=== PATIENT | female | born 1970 | race Caucasian/White ===

== ENCOUNTER 2017-09-05 16:14 | Inpatient (IN) | payer OTHER ==
--- OUTSIDE RECORDS SUMMARY | 2017-09-05 17:15 | XMS REPORT ---
:1970 External Reference #:[id number] Author Organization [facility] Address [address] [place] [address] Phone [phone] Care Team Providers Name Role Phone Eda Woodall PA Care Team Information Audio Recording Engineer Unavailable Payers Type Date Identification Numbers Payment Provider Subscriber Commercial Effective: Policy Number: [employer] Ppo Harriet Abdi 2012 [id number] PayID: [id number] [address] [place] [address] Problems Description No Active Problems Family History Date Family Member(s) Problem(s) Comments Onset: Father None bd 1943 (08/15/2008) Onset: Mother Anemia unknown estonian back (08/15/2008) ground First Daughter Lori Born 2006 Number of Siblings Siblings: 1 Order Patient is the youngest of two children First Sister None Paternal Grandfather due to Colon () - at more Cancer than 70 Maternal Grandmother Pancreatic Cancer Maternal Grandmother Diabetes, Nos Social History Type Date Description Comments Education Post-Grad Marital Status Occupation Academic/Theatre Work Status Currently Working Advance Directive 08/15/2008 Living Will advised Abuse No history of abuse Cigarette Use Tobacco Of Any Kind Denies Use ETOH Use Rarely consumes alcohol Recreational Drug Use Denies Drug Use Daily Caffeine Does Not Consume Caffeine Enjoy Exercising Enjoys exercising Exercise Type/Frequency Exercises walking 45 min around neighborhood frequently Sun Exposure Uses sunscreen Seat Belt/Car Seat always uses seat belt Contraceptive Methods None Contraceptive Methods Current methods include condoms Age 1st Welling 20 Years Old STD's No STD History Additional Info Sexual preference is men Additional Info Sexual Partners 1 Allergies, Adverse Reactions, Alerts Date Description Reaction Status Severity Comments 06/29/2008 NKDA active Medications Medication Date Status Form Strength Qnty SIG Indications Ordering Provider Phenazopyridine 03/08 Active Tablets 100mg 30tab 1-2 tabs up 788.1 Silcoff, HCL s to tid, prn Don, Use only M.D. when sxs particularl y annoying Multi-Vitamin 06/29 Active Tablets 100ta 1 PO qd franki Card M.D. Tamiflu 08/13 Hx Capsules 75mg 10cap take 1 Sopchak s capsule by Slade, - mouth daily D.O. 08/23 for 10 days for treatment to prevent influenza Ciprofloxacin 03/01 Hx Tablets 250mg 14tab 1 tab po 788.1 Silcoff, HCL s bid x 7 Virginia Ochoa M.D. 03/08 Amoxicillin/Pota 01/05 Hx Tablets 875-125mg 20tab 1 tab po 461.2 Silcoff, ssium s bid x 10 Don Clavulanate - days M.DMarine 01/16 Fluconazole 01/05 Hx Tablets 150mg 1tabs 1 tab po 1 461.2 Silcoff, time Virginia Ochoa M.D. 01/06 Sulfacetamide 06/21 Hx Suspension 10% 1bott 1-2 drops 372.00 Silco, le every 3 Don, - hours while M.D. 07/01 awake for up to 5 days to affected eye(s), or until symptom free for 24hrs Lo Loestrin Fe 06/09 Hx Tablets 1mg-10 as directed Unknown mcg / 10 - mcg 09/04 Fluconazole 05/28 Hx Tablets 150mg 1tabs 1 now 486 Pratik Card, 06/02 M.DMarine Phenergen With 05/21 Hx 120cc 2 tsp q 4h 786.2 Freddy Codeine Cough prn cough Pratik Syrup Virginia Card, 06/10 M.D. Clarithromycin 05/12 Hx Tablets 500mg 20tab 1 po bid 486 s Pratik Card, 05/22 M.D. Calcium 600+D 01/19 Hx Tablets 600-400mg 2 a day V70.0 -Unit Pratik Card, 09/04 M.D. Clarithromycin 11/27 Hx Tablets 250mg 20tab 1 po bid 462 s Pratik - Kyaw, 12/07 M.D. Amoxicillin 10/15 Hx Tablets 875mg 20tab 1 tab bid x 381.00 Silcoff /2009 s 10 day Virginia OchoaDMarine 11/27 Codeine 10/15 Hx 45uni 1 tab 1-2 381.00 Silcoff, W/Tylenol ts tabs q4-6 Don, - hrs prn M.D. 11/27 Amoxicillin 06/29 Hx 250mg 45uni 1 tid until 461.0 ts gone Pratik - Kyaw, 07/13 M.D. Nystatin 06/29 Hx Tablets [id number] 14tab Vaginal 461.0 t s Tablet Use A. - One qd Kyaw, 07/13 M.D. Veramyst Hx Suspension 27.5mcg/S 2 sprays to Unknown /0000 pray both - nostrils 03/01 once daily. Medications Administered in Office Medication Date Status Form Strength Qnty SIG Indications Ordering Provider SC/Im Administered Injection Freddy Isaac 010 Josh Card Immunizations CPT Code Status Date Vaccine Lot # [id number] Given 06/04/2016 Influenza Virus Vaccine, Quadrivalent, Split, [id number] Preservative Free [id number] Given 05/19/2015 Influenza Virus Vaccine, Split, Preserv Free, [id number] Intradermal Use 56737 Given 06/07/2014 Flu, Split Virus 3Yrs [id number] 39804 Given 05/31/2012 Flu, Split Virus 3Yrs [id number] 79998 Given 04/21/2011 Flu, Split Virus 3Yrs [id number] 94515 Given 07/28/2010 Flu, Split Virus 3Yrs [id number] 73232 Given 08/15/2008 Adacel or Boostrix, TDaP [id number] 74269 Given 08/15/2008 Flu, Split Virus 3Yrs [id number] Vital Signs Date Vital Result Comment 09/05/2017 BP Systolic 112 mmHg BP Diastolic 56 mmHg Heart Rate 76 /min Body Temperature 98.0 F Height 66 inches 5'6" Weight 118.00 lb BMI (Body Mass Index) 19.0 kg/m2 03/08/2012 BP Systolic 102 mmHg BP Diastolic 61 mmHg Heart Rate 73 /min Body Temperature 98.1 F 03/01/2012 BP Systolic 85 mmHg BP Diastolic 55 mmHg Heart Rate 93 /min Body Temperature 98.7 F Height 65 inches 5'5" Weight 158.00 lb BMI (Body Mass Index) 26.3 kg/m2 01/06/2012 BP Systolic 119 mmHg BP Diastolic 68 mmHg Heart Rate 95 /min Body Temperature 98.1 F Weight 158.00 lb 06/21/2011 BP Systolic 104 mmHg BP Diastolic 58 mmHg Body Temperature 98.6 F Height 65 inches 5'5" Weight 154.00 lb BMI (Body Mass Index) 25.6 kg/m2 10/16/2010 BP Systolic 112 mmHg BP Diastolic 60 mmHg Heart Rate 80 /min Respiratory Rate 16 /min Body Temperature 98.2 F Weight 145.00 lb 06/30/2010 BP Systolic 95 mmHg BP Diastolic 48 mmHg Height 65 inches 5'5" Weight 140.00 lb BMI (Body Mass Index) 23.3 kg/m2 05/28/2010 BP Systolic 94 mmHg BP Diastolic 58 mmHg Weight 140.00 lb 05/21/2010 BP Systolic 104 mmHg BP Diastolic 50 mmHg Height 65.25 inches 5'5.25" Weight 138.00 lb BMI (Body Mass Index) 22.8 kg/m2 05/15/2010 BP Systolic 84 mmHg BP Diastolic 58 mmHg Heart Rate 70 /min Respiratory Rate 17 /min Body Temperature 98.6 F Weight 140.00 lb Last Menstrual Period 0 05/12/2010 BP Systolic 110 mmHg BP Diastolic 60 mmHg Heart Rate 90 /min Respiratory Rate 18 /min O2 % BldC Oximetry 97 % w exercise an la rest Body Temperature 100.4 F Weight 140.00 lb Last Menstrual Period [id number] nl 01/19/2010 BP Systolic 98 mmHg BP Diastolic 60 mmHg Weight 138.00 lb 11/27/2009 BP Systolic 88 mmHg BP Diastolic 50 mmHg Body Temperature 99.1 F Weight 138.00 lb 10/15/2009 BP Systolic 135 mmHg BP Diastolic 63 mmHg Heart Rate 76 /min Body Temperature 98.3 F Weight 134.00 lb Last Menstrual Period 0 08/15/2008 BP Systolic 100 mmHg BP Diastolic 60 mmHg Height 65 inches 5'5" Weight 150.00 lb BMI (Body Mass Index) 25.0 kg/m2 06/29/2008 BP Systolic 94 mmHg BP Diastolic 66 mmHg Body Temperature 98.6 F Weight 154.00 lb Last Menstrual Period 0 Results Test Date Test Result H/L Range Note Ua Inhouse 09/05/2017 Ua Glucose - 1 Ua Bilirubin - 1 Ua Ketones tr 1 Ua Specific Troy 1.005 1 Ua Blood - 1 Ua PH 7.0 1 Ua Protein - 1 Ua Urobilinogen - 1 Ua Nitrite - 1 Ua Leukocytes - 1 Laboratory test 07/23/2016 Urine Culture And SEE RESULT BELOW 2, 3 finding Sensitivities Urinalysis 04/05/2013 Urine Color Yellow Urine Appearance Cloudy Urine Specific Troy 1.005 Low 1.010-1.030 Urine Esterase 2+ Negative Urine Nitrate Negative Negative Urine Urobilinogen Negative E.U./dL Negative Urine Protein 1+ mg/dL Negative Urine pH 6.0 5-9 Urine Blood 3+ Negative Urine Ketones Negative mg/dL Negative Urine Bilirubin Negative Negative Urine Glucose Negative mg/dL Negative Urine Microscopic 04/05/2013 Urine WBC 2+ (>10-30 /hpf) None Seen 4 Urine RBC 3+ (>10 /hpf) None Seen Urine Mucus Present /lpf Absent Urine Epithelial Cells 1+ Squamous /hpf None Seen Bacteria Urine None Seen None Seen Urine Culture And Sensitivities 04/05/2013 Urine Culture (SEE NOTE) 5 Urine Culture & Sensitivi 03/13/2012 M 6 <SEE NOTE> Ua Inhouse 03/08/2012 Ua Glucose - Ua Bilirubin - Ua Ketones - Ua Specific Troy 1.005 Ua Blood nh mod Ua PH 5.0 Ua Protein - Ua Urobilinogen - Ua Nitrite - Ua Leukocytes - Culture Urine Inhouse 03/08/2012 Colonies neg Culture Urine Inhouse 03/01/2012 Colonies [id number] Ua Inhouse 03/01/2012 Ua Glucose - Ua Bilirubin - Ua Ketones - Ua Specific Troy 1.005 Ua Blood nh mod Ua PH 5.0 Ua Protein - Ua Urobilinogen - Ua Nitrite - Ua Leukocytes - Urine Culture & 01/06/2012 M <SEE NOTE> 7 Sensitivi Urine Micro Inhouse 01/06/2012 Ua WBC ntnc Ua RBC tntc Ua Casts - Ua Epi - Ua Other - Ua Glucose - Ua Bilirubin - Ua Ketones - Ua Specific Troy 1.005 Ua Blood lg Ua PH 5.0 Ua Protein - Ua Urobilinogen - Ua Nitrite - Ua Leukocytes lrg Urine Culture & 08/24/2011 M <SEE 8 Sensitivi NOTE> Laboratory test finding 10/16/2010 Culture Throat neg Culture Throat Rapid Screen neg Xray 06/30/2010 X-Ray, Chest, 2 wnl Views Xray 05/21/2010 X-Ray, Chest, 2 improved RLL Views Laboratory test 05/12/2010 Bordetella Pertussis This test was de 9, 10 finding <SEE NOTE> Xray 05/12/2010 X-Ray, Chest, 2 rll pn Views Laboratory test 01/19/2010 Vitamin B12 565 pg/mL 180-914 finding Folic Acid > 20.0 NG/ML High 2-16 CBC With Electronic Diff 01/19/2010 White Blood Count 5.4 CUMM 4.8-10.8 Red Cell Count 3.62 CUMM Low 4.2-5.4 Hemoglobin 11.9 g/dL Low 12.0-16.0 Hematocrit 34 % Low 35-47 Mean Corpuscular Volume 95 um3 79-97 Mean Corpuscular Hemoglob 33 pg High 27-31 Mean Corpuscular HGB Cone 35 g/dL 32-36 Redcell Distribution WDTH 13 % 10.5-15 Platelet Count 231 CUMM 150-450 Mean Platelet Volume 6.8 um3 Low 7.4-10.4 Gran % 68.6 % 38-83 Lymph % 21.7 % Low 25-47 Mononuclear % 7.7 % 1-9 Eosinophil % 1.2 % 0-6 Basophil % 0.8 % 0-2 Abs Lymphs 1.2 1.0-4.8 Abs Mononuclear 0.4 0-0.8 Absolute Neutrophil Count 3.7 1.5-7.7 Abs Eosinophils 0.1 0-0.6 Abs Basophils 0 0-0.2 Liver Function Panel 01/19/2010 Total Protein 6.1 GM/DL Low 6.2-8.1 Albumin 3.6 GM/DL 3.6-5.4 Globulin 2.5 GM/DL 2-4 Albumin/Globulin Ratio 1.4 1-3 Bilirubin Total 0.9 mg/dL 0.4-1.5 11 Bilirubin Direct 0.2 mg/dL 0.1-0.5 Indirect Bilirubin 0.7 mg/dL 0.1-0.75 Alkaline Phosphatase 61 U/L 30-110 Alt (SGPT) 15 U/L 14-54 Ast (Sgot) 18 U/L 12-42 Basic Metabolic Panel 01/19/2010 Sodium 138 mmol/L 135-145 Potassium 3.6 mmol/L 3.5-5.0 Chloride 103 mmol/L 101-111 Co2 (Carbon Dioxide) 30.0 mmol/L 22-32 Anion Gap 5.0 mmol/L 2-11 12 Glucose 68 mg/dL Low 70-100 13 BUN 9 mg/dL 6-24 Creatinine 0.80 mg/dL 0.50-1.40 One Over Creatinine 1.20 BUN/Creatinine Ratio 11.3 8-20 Calcium 9.2 mg/dL 8.1-9.9 14 eGFR Non- 84.4 > 60 eGFR 102.2 > 60 15 Laboratory test finding 11/27/2009 Culture Throat neg Culture Throat Rapid Screen neg CBC With Electronic Diff 09/04/2008 White Blood Count 7.0 CUMM 4.8-10.8 Red Cell Count 3.87 CUMM Low 4.2-5.4 Hemoglobin 12.5 g/dL 12.0-16.0 Hematocrit 36 % 35-47 Mean Corpuscular Volume 93 um3 79-97 Mean Corpuscular Hemoglob 32 pg High 27-31 Mean Corpuscular HGB Cone 35 g/dL 32-36 Redcell Distribution WDTH 13 % 10.5-15 Platelet Count 259 CUMM 150-450 Mean Platelet Volume 6.8 um3 Low 7.4-10.4 Gran % 67.8 % 38-83 Lymph % 22.7 % Low 25-47 Mononuclear % 8.4 % 1-9 Eosinophil % 0.8 % 0-6 Basophil % 0.3 % 0-2 Abs Lymphs 1.6 1.0-4.8 Abs Mononuclear 0.6 0-0.8 Absolute Neutrophil Count 4.8 1.5-7.7 Abs Eosinophils 0.1 0-0.6 Abs Basophils 0 0-0.2 Lipid Profile (Trig/Chol/HDL) 09/04/2008 Triglyceride 58 mg/dL 40-200 Cholesterol 150 mg/dL Less Than 200 16 High Density Lipoprotein 61 mg/dL High 40-60 17 Cholesterol/HDL Ratio 2.46 AVERAGE 1-4.44 Low Density Lipoprotein 77 mg/dL Less Than 100 18 1 void, clear, yellow 2 [id number] 3 SEE RESULT BELOW Name: HARRIET ABDI : [address]: Shanita Gamble Acct: [id number] Unit: [id number] AGE: 45 Location: [facility] Re07/23/16 SEX: F Status: DEP ER SPEC: [id number] STEPHENIE: 07/23/16-[address] [facility] [address]: Mansoor ACEVES REQ: [id number] RECD: 07/23/16-1634 STATUS: LYNNETTE ESCALANTE DR: Shanita Marcano MD _ SOURCE: URINE SPDESC: ORDERED: Urine Culture COMMENTS: [id number] Procedure Result Reported Site Urine Culture Final 07/25/16- 1225 ML Mixed manolo; possible contamination. Suggest resubmission. * ML - MAIN LAB (PSC1) . END OF REPORT * ML=Testing performed at Main Lab DEPARTMENT OF PATHOLOGY, [facility] [employer] [place], [place] [address] Ben Veloz M.D. Director [facility] # [id number] 4 2+ (>10-30 /hpf) 5 RUN DATE: 04/07/13 [facility] LAB LIVE PAGE 1 RUN TIME: 957 [facility] [place], [place] [address] Specimen Inquiry Name: HARRIET ABDI : [address]: Renzo Begum MD Acct: [id number] Unit: [id number] AGE: 42 Location: [facility] Re04/05/13 SEX: F Status: DEP ER SPEC: [id number] STEPHENIE: 04/05/[address] [facility] [address]: Renzo Begum MD REQ: [id number] RECD: 04/05/13 STATUS: LYNNETTE ESCALANTE DR: MARY Card MD _ SOURCE: URINE SPDESC: ORDERED: Urine Culture Procedure Result Verified Site Urine Culture Final 04/07/13- 957 ML Organism 1 NORMAL MANOLO [place] Count 1-10,000 (Few) CFU/ML END OF REPORT * ML=Testing performed at Main Lab DEPARTMENT OF PATHOLOGY, [address] [place] [address] Ben Veloz M.D. Director [facility] Permit #[id number] RUN DATE: 03/15/12 [facility] NMI LIVE PAGE 1 RUN TIME: 904 Specimen Inquiry RUN USER: INTERFACE Name: TRINIDADHARRIET E Status: REG REF Re03/13/12 Age/Sex: 41/F Unit#: [id number] Location: [facility] : [birth year] SPEC #: [id number] STEPHENIE: 03/13/12-1130 STATUS: COMP REQ #: [id number] RECD: 03/13/12-[address]: [place] PA,Shavon S. SOURCE: URINE ENTR: 03/13/12-[address]: PRERNA: ORDERED: URINE C S QUERIES: MEDENT REQUISITION # [id number] SPECIMEN DESCRIPTION: URINE, CLEAN CATCH ACT WKST: UR 03/15/12 #1 Procedure Result Verified Site > URINE CULTURE SENSITIVI Final -09 ML FINAL: NO GROWTH DAY 2 (<1,000 CFU/mL) ML - [facility] State Permit #[id number] [address] [place] [address] DEPARTMENT OF PATHOLOGY, [address], [place], [place] [address] [facility] Permit #[id number] Ben Veloz M.D. Director Kenya Bradford M.D. [facility] 7 RUN DATE: 01/08/12 [facility] NMI LIVE PAGE 1 RUN TIME: 945 Specimen Inquiry RUN USER: INTERFACE Name: HARRIET ABDI Accmila#: [id number] Status: REG REF Re01/06/12 Age/Sex: 41/F Unit#: [id number] Location: [facility] : 68 SPEC #: [id number] STEPHENIE: 01/06/12 STATUS: LYNNETTE REQ #: [id number] RECD: 01/06/[address] [facility] [address]: Shavon Nxi SOURCE: URINE ENTR: 01/06/[address] [facility] [address]: [facility]: ORDERED: URINE C S QUERIES: [facility] REQUIS[facility] # [id number] SPECIMEN DESCRIPTION: URINE, CLEAN CATCH Procedure Result Verified Site > URINE CULTURE SENSITIVI Final -0946 ML Organism 1 ESCHERICHIA COLI COLONY COUNT 75-100,000 ORGANISMS/ML (MANY) 1. ESCHERICHIA COLI RX M.I.C. ------ --------- AMIKACIN S <=2 LEVOFLOXACIN S <=0.12 AMPICILLIN S <=2 CEFAZOLIN S <=4 CEFTRIAXONE S <=1 CIPROFLOXACIN S <=0.25 GENTAMICIN S <=1 TIGECYCLINE S <=0.5 CEFTAZIDIME S <=1 IMIPENEM S <=1 NITROFURANTOIN S 32 TRIMETH-SULFA S <=20 *These antibiotics are not available in the [facility] Formulary. Contact the Microbiology Department for any additional antibiotic reporting. [facility] Permit #[id number] [address] [place] [address] DEPARTMENT OF PATHOLOGY, [address] [place] [address] [facility] Permit #[id number] Josh Lynch M.D. Heel Shaver 8 RUN DATE: 08/26/11 [facility] NMI LIVE PAGE 1 RUN TIME: 3462 Specimen Inquiry RUN USER: INTERFACE Name: HARRIET ABDI Status: DEP CLI Re08/24/11 Age/Sex: 40/F Unit#: [id number] Location: [facility] : 68 SPEC #: [id number] STEPHENIE: 08/24/11 STATUS: COMP REQ #: [id number] RECD: 08/24/[address]: Soren Mcneil MD SOURCE: URINE ENTR: 08/24/[address]: Kyaw MORTON, Freddy Christie SPDESC: ORDERED: URINE C S QUERIES: SPECIMEN DESCRIPTION: URINE, CLEAN CATCH Procedure Result Verified Site > URINE CULTURE SENSITIVI Final -0959 ML Organism 1 ESCHERICHIA COLI COLONY COUNT >100,000 ORGANISMS/ML (MANY) 1. ESCHERICHIA COLI RX M.I.C. ------ --------- AMIKACIN S <=2 LEVOFLOXACIN S <=0.12 AMPICILLIN S <=2 CEFAZOLIN S <=4 CEFTRIAXONE S <=1 CIPROFLOXACIN S <=0.25 GENTAMICIN S <=1 TIGECYCLINE S <=0.5 CEFTAZIDIME S <=1 IMIPENEM S <=1 NITROFURANTOIN S <=16 TRIMETH-SULFA S <=20 *These antibiotics are not available in the [facility] Formulary. Contact the Microbiology Department for any additional antibiotic reporting. - [facility] Permit #[id number] [address] [place] [address] DEPARTMENT OF PATHOLOGY, [address] [place] [address] [place] Permit #[id number] Ben Veloz M.D. Director Kenya Bradford M.D. Heel Shaver 9 neg 10 This test was developed and its performance characteristics determined by Laboratory Medicine and Pathology, [facility]. This test has not been cleared or approved by the U.S. Food and Drug Administration. Test performed by: [facility] [employer] [address] [address] Negative for Bordetella pertussis/parapertussis DNA 11 A metabolite of Naproxen, O-desmethylnaproxen, has been shown to interfere with the Jendrassik-Eighty Four method for measuring total bilirubin. Samples from patients who have taken Naproxen have shown spurious elevation in total bilirubin levels. 12 Anion gap measurement may be of limited value in the presence of any alkalosis, especially in a combined acid base disorder. . 13 Note change in reference range as of 03/21/08. The change was based on recommendations from the [place] [employer]. 14 Please note change in reference range effective 08 . 15 Because ethnic data is not always readily available, this report includes an eGFR for both -Americans and non- Americans. The National Kidney Disease Education Program (NKDEP) does not endorse the use of the MDRD equation for patients that are not between the ages of 18 and 70, are , have extremes of body size, muscle mass, or nutritional status, or are non- or non-. According to the National Kidney Foundation, irrespective of diagnosis, the stage of the disease is based on the level of kidney function: Stage Description GFR(mL/min/1.73 m(2)) 1 Kidney damage with normal or decreased GFR 90 2 Kidney damage with mild decrease in GFR 60-89 3 Moderate decrease in GFR 30-59 4 Severe decrease in GFR 15-29 5 Kidney failure <15 (or dialysis) 16 CHOLESTEROL INTERPRETATION: Desirable: Less than 200 MG/DL Borderline-High Risk: 200-239 MG/DL High-Risk: 240 MG/DL and over 17 HDL INTERPRETATION: Undesirable: High Risk: Less than 40 MG/DL Desirable: Low Risk: Greater than 60 MG/DL 18 LDL INTERPRETATION: Low Risk Optimal Level: LDL Less than 100 MG/DL Near or Above Optimal: LDL 100-129 MG/DL Borderline High Risk: LDL 130-159 MG/DL High Risk: LDL 160-189 MG/DL Very High Risk: LDL Greater than 189 MG/DL Procedures Date CPT Code Description Status 06/30/2010 08710 X-Ray Chest Two Views Completed 05/21/2010 69259 X-Ray Chest Two Views Completed 05/12/2010 30609 SC/Im Injections Completed 05/12/2010 58193 Oximetry, Multiple Determinations (Eg, During Exercise) Completed 05/12/2010 19541 X-Ray Chest Two Views Completed 01/19/2010 57083 Anoscopy Diagnostic Completed 08/15/2008 75190 Tympanometry Completed 08/15/2008 88805 Pure Tone, Threshold Completed 08/15/2008 96342 Remove Impact Cerumen Requiring Instrument, Unilateral Completed 07/29/2006 0 Payment Completed Encounters Type Date Location Provider CPT E/M Dx Office Visit 09/05/2017 11:40a Main Office Mary Kent 88408 R10.9 R19.7 Office Visit 03/08/2012 11:20a Main Office Mary Kent 85111 788.1 789.00 Office Visit 03/01/2012 4:20p Main Office Mary Kent 50025 788.1 599.70 Office Visit 01/06/2012 10:20a Main Office Mary Kent 36876 788.1 461.2 388.70 Office Visit 06/21/2011 3:00p Main Office Don Vital M.D. 45736 372.00 Office Visit 10/16/2010 10:25a Main Office Freddy Card M.D. 77491 462 466.0 Office Visit 06/30/2010 3:30p Main Office Freddy Card M.D. 55928 486 Office Visit 05/28/2010 4:00p Main Office Freddy Card M.D. 08099 486 616.10 Office Visit 05/21/2010 3:15p Main Office Freddy Card M.D. 58442 486 786.2 Office Visit 05/15/2010 4:30p Main Office Freddy Card M.D. 90052 486 Office Visit 05/12/2010 3:45p Main Office Freddy Card M.D. 50472 786.2 486 786.07 Office Visit 01/19/2010 9:15a Main Office Freddy Card M.D. 19619 216.8 569.42 787.02 367.4 388.71 V70.0 Office Visit 11/27/2009 3:00p Main Office Freddy Card M.D. 28182 462 Office Visit 10/15/2009 11:20a Main Office Mary Kent 91822 381.00 388.71 Office Visit 08/15/2008 2:00p Main Office Freddy Card M.D. 16559 380.4 389.00 V77.91 V70.0 381.81 V04.81 V06.1 V07.2 Office Visit 06/29/2008 10:00a Main Office Freddy Card M.D. 95744 461.0 Plan of Care 09/05/2017 - Shavon Leone PMarineA.R10.9 Unspecified abdominal painNew Xrays:CT Abdomen and Pelvis w/ ContrastComments:UA [id number] Diarrhea, unspecifiedNew Xrays:CT Abdomen and Pelvis w/ ContrastComments:occult blood, small amt seen on YOLANDA. Referred to ED: note sent.Follow up:CT call and hold: we will contact you while you are at the facility Addendum: Verbal report from imaging indicated severe colitis. Patient does have rectal bleeding and more than 6 episodes of diarrhea today. This is first episode of this disorder for this pt. Reocmmended that she go to ER for further treatment. CT report and labs already conducted. (Labs were done this afternoon at [facility] Pt electing to go to [facility] as she lives near there.
[2017-09-05] MEDS ORDERED: NS 0.9% 1000 ML* 2,000 ML IV ONE (17:34)
[2017-09-05 17:53] LABS: ABS Basophils 0 10^3/ul (0-0.2); ABS Eosinophils 0 10^3/ul (0-0.6); ABS Lymphocytes 1.3 10^3/ul (1.0-4.8); ABS Monocytes 0.7 10^3/ul (0-0.8); ABS Neutrophils 8.4 10^3/ul (1.5-7.7); ABS Nucleated RBC 0 10^3/ul; Eosinophil % 0.1 % (0-6); Hematocrit 40 % (35-47); Hemoglobin 13.8 g/dl (12.0-16.0); Lymphocyte % 12.1 % (25-47); Mean Corpuscular HGB Conc 35 g/dl (31-36); Mean Corpuscular Hemoglobin 33 pg (27-31); Mean Corpuscular Volume 95 fL (80-97); Mean Platelet Volume 7 um3 (7.4-10.4); Nucleated Red Blood Cells % 0; Platelet Count 283 10^3/ul (150-450); Red Cell Distribution Width 13 % (10.5-15); White Blood Count 10.5 10^3/ul (3.5-10.8)
[2017-09-05 18:11] LABS: EGFR Non-African American 74.7 (>60)
[2017-09-05 18:17] LABS: Urine Appearance Clear; Urine Blood Negative (Negative); Urine Color Straw; Urine Ketones Negative (Negative); Urine Protein Negative (Negative); Urine Specific Gravity 1.023 (1.010-1.030); Urine Urobilinogen Negative (Negative)
[2017-09-05] MEDS ORDERED: Morphine INJ* 4 MG/ML 1 ML CARPUJECT IV ONE (18:24)
[2017-09-05] MEDS ORDERED: Ondansetron INJ* 2 MG/ML VIAL IV ONE (18:24)
--- NOTE | 2017-09-05 18:30 | ED ---
GI/ HPI - HPI Summary HPI Summary: 46-year-old female presents with diarrhea since Tuesday morning. She states that she has been having intermittent abdominal cramping greatest in LLQ. She admits occasional nausea and vomiting. She states she has been having blood in her stool. She states that yesterday the blood was much worse than today. She states she feels very weak. She states that when the cramping occurs it radiates also into her back. She denies any dysuria hematuria or flank pain. She denies any fever. She denies any previous abdominal surgeries or history of diverticulitis or colitis. She's never had this before. She denies any chest pain or shortness of breath. She denies anyone else being sick or eating anything different. She is not on blood thinners. She has taken Tylenol for pain relief. She describes her pain as contraction-like. She was seen at her primary who ordered a CT which the CT shows colitis. She ate only crackers today. She has no medical conditions. - History of Current Complaint Chief Complaint: EDAbdPain Time Seen by Provider: 09/05/17 17:37 Stated Complaint: CRAMPING/BLOOD IN STOOL/DIARRHEA Hx Last Menstrual Period: 07/02/16 Pain Intensity: 7 - Allergy/Home Medications Allergies/Adverse Reactions: Allergies Allergy/AdvReac Type Severity Reaction Status Date / Time No Known Allergies Allergy Verified 04/05/13 08:36 Home Medications: Home Medications Ibuprofen TAB* [Advil TAB*] 200 mg PO DAILY PRN 09/05/17 [History Confirmed 12/16] Multivitamins/Minerals TAB* [Thera M Plus TAB*] 1 tab PO EVERY OTHER DAY [History Confirmed 09/05/17] PMH/Surg Hx/FS Hx/Imm Hx Endocrine/Hematology History: Denies: Hx Diabetes, Hx Thyroid Disease Cardiovascular History: Denies: Hx Hypertension Respiratory History: Denies: Hx Asthma, Hx Chronic Obstructive Pulmonary Disease (COPD) GI History: Denies: Hx Ulcer History: Denies: Hx Dialysis, Hx Renal Disease - Cancer History Hx Chemotherapy: No Hx Radiation Therapy: No - Surgical History Surgery Procedure, Year, and Place: EAR Infectious Disease History: No Infectious Disease History: Denies: Hx Clostridium Difficile, Hx Hepatitis, Hx Human Immunodeficiency Virus (HIV), Hx of Known/Suspected MRSA, Traveled Outside the [place] in Last 30 Days - Family History Known Family History: Positive: Respiratory Disease - COUSIN KIDNEY STONE - Social History Alcohol Use: Rare Alcohol Amount: WINE W/ DINNER Substance Use Type: Reports: None Smoking Status (MU): Never Smoked Tobacco Review of Systems Negative: Fever Negative: Chest Pain Negative: Shortness Of Breath Positive: Abdominal Pain, Vomiting, Diarrhea, Nausea All Other Systems Reviewed And Are Negative: Yes Physical Exam Triage Information Reviewed: Yes Vital Signs On Initial Exam: Initial Vitals Temp Pulse Resp BP Pulse Ox 99.6 F 86 18 123/62 100 09/05/17 16:24 09/05/17 16:24 09/05/17 16:24 09/05/17 16:24 09/05/17 16:24 Vital Signs Reviewed: Yes Appearance: Positive: Pain Distress Skin: Positive: Warm, Dry Head/Face: Positive: Normal Head/Face Inspection Eyes: Positive: Normal, EOMI, [place], Conjunctiva Clear ENT: Positive: Normal ENT inspection, Pharynx normal, TMs normal Respiratory/Lung Sounds: Positive: Clear to Auscultation, Breath Sounds Present Cardiovascular: Positive: Normal, RRR Abdomen Description: Positive: Soft, Other: - tenderness greatest in LLQ, no rebound Bowel Sounds: Positive: Present Musculoskeletal: Positive: Normal Neurological: Positive: Normal Psychiatric: Positive: Normal Diagnostics - Vital Signs Vital Signs Temp Pulse Resp BP Pulse Ox 09/05/17 18:02 71 99 09/05/17 18:00 119/66 09/05/17 17:52 80 100 09/05/17 17:46 71 99 09/05/17 17:44 116/50 09/05/17 16:24 99.6 F 86 18 123/62 100 - Laboratory Lab Results: Lab Results 09/05/17 09/05/17 09/05/17 Range/Units 17:42 17:42 17:42 WBC 10.5 (3.5-10.8) 10^3/ul RBC 4.20 (4.0-5.4) 10^6/ul Hgb 13.8 (12.0-16.0) g/dl Hct 40 (35-47) % MCV 95 (80-97) fL MCH 33 H (27-31) pg MCHC 35 (31-36) g/dl RDW 13 (10.5-15) % Plt Count 283 (150-450) 10^3/ul MPV 7 L (7.4-10.4) um3 Neut % (Auto) 80.5 (38-83) % Lymph % (Auto) 12.1 L (25-47) % [place] % (Auto) 7.1 (1-9) % Eos % (Auto) 0.1 (0-6) % Baso % (Auto) 0.2 (0-2) % Absolute Neuts (auto) 8.4 H (1.5-7.7) 10^3/ul Absolute Lymphs (auto) 1.3 (1.0-4.8) 10^3/ul Absolute Monos (auto) 0.7 (0-0.8) 10^3/ul Absolute Eos (auto) 0 (0-0.6) 10^3/ul Absolute Basos (auto) 0 (0-0.2) 10^3/ul Absolute Nucleated RBC 0 10^3/ul Nucleated RBC % 0 Sodium 131 L (133-145) mmol/L Potassium 4.2 (3.5-5.0) mmol/L Chloride 98 L (101-111) mmol/L Carbon Dioxide 27 (22-32) mmol/L Anion Gap 6 (2-11) mmol/L BUN 6 (6-24) mg/dL Creatinine 0.82 (0.51-0.95) mg/dL Est GFR ( Amer) 96.1 (>60) Est GFR (Non-Af Amer) 74.7 (>60) BUN/Creatinine Ratio 7.3 L (8-20) Glucose 146 H (70-100) mg/dL Lactic Acid 1.2 (0.5-2.0) mmol/L Calcium 9.6 (8.6-10.3) mg/dL Total Bilirubin 1.00 (0.2-1.0) mg/dL AST 16 (13-39) U/L ALT 15 (7-52) U/L Alkaline Phosphatase 58 (34-104) U/L C-React Prot High Sens 1.81 mg/L Total Protein 7.4 (6.4-8.9) g/dL Albumin 4.0 (3.2-5.2) g/dL Globulin 3.4 (2-4) g/dL Albumin/Globulin Ratio 1.2 (1-3) Lipase 17 (11.0-82.0) U/L Urine Color Urine Appearance Urine pH (5-9) Ur Specific [place] (1.010-1.030) Urine Protein (Negative) Urine Ketones (Negative) Urine Blood (Negative) Urine Nitrate (Negative) Urine Bilirubin (Negative) Urine Urobilinogen (Negative) Ur Leukocyte Esterase (Negative) Urine Glucose (Negative) 09/05/17 Range/Units 18:05 WBC (3.5-10.8) 10^3/ul RBC (4.0-5.4) 10^6/ul Hgb (12.0-16.0) g/dl Hct (35-47) % MCV (80-97) fL MCH (27-31) pg MCHC (31-36) g/dl RDW (10.5-15) % Plt Count (150-450) 10^3/ul MPV (7.4-10.4) um3 Neut % (Auto) (38-83) % Lymph % (Auto) (25-47) % [place] % (Auto) (1-9) % Eos % (Auto) (0-6) % Baso % (Auto) (0-2) % Absolute Neuts (auto) (1.5-7.7) 10^3/ul Absolute Lymphs (auto) (1.0-4.8) 10^3/ul Absolute Monos (auto) (0-0.8) 10^3/ul Absolute Eos (auto) (0-0.6) 10^3/ul Absolute Basos (auto) (0-0.2) 10^3/ul Absolute Nucleated RBC 10^3/ul Nucleated RBC % Sodium (133-145) mmol/L Potassium (3.5-5.0) mmol/L Chloride (101-111) mmol/L Carbon Dioxide (22-32) mmol/L Anion Gap (2-11) mmol/L BUN (6-24) mg/dL Creatinine (0.51-0.95) mg/dL Est GFR ( Amer) (>60) Est GFR (Non-Af Amer) (>60) BUN/Creatinine Ratio (8-20) Glucose (70-100) mg/dL Lactic Acid (0.5-2.0) mmol/L Calcium (8.6-10.3) mg/dL Total Bilirubin (0.2-1.0) mg/dL AST (13-39) U/L ALT (7-52) U/L Alkaline Phosphatase (34-104) U/L C-React Prot High Sens mg/L Total Protein (6.4-8.9) g/dL Albumin (3.2-5.2) g/dL Globulin (2-4) g/dL Albumin/Globulin Ratio (1-3) Lipase (11.0-82.0) U/L Urine Color Straw Urine Appearance Clear Urine pH 7.0 (5-9) Ur Specific [place] 1.023 (1.010-1.030) Urine Protein Negative (Negative) Urine Ketones Negative (Negative) Urine Blood Negative (Negative) Urine Nitrate Negative (Negative) Urine Bilirubin Negative (Negative) Urine Urobilinogen Negative (Negative) Ur Leukocyte Esterase Negative (Negative) Urine Glucose Negative (Negative) Result Diagrams: 09/05/17 17:42 09/05/17 17:42 Lab Statement: Any lab studies that have been ordered have been reviewed, and results considered in the medical decision making process. GIGU Course/Dx - Course Course Of Treatment: 46-year-old female presents with diarrhea since Tuesday morning. She states that she has been having intermittent abdominal cramping greatest in LLQ. She admits occasional nausea and vomiting. She states she has been having blood in her stool. She states that yesterday the blood was much worse than today. She states she feels very weak. She states that when the cramping occurs it radiates also into her back. She denies any dysuria hematuria or flank pain. She denies any fever. She denies any previous abdominal surgeries or history of diverticulitis or colitis. She's never had this before. She denies any chest pain or shortness of breath. She denies anyone else being sick or eating anything different. She is not on blood thinners. She has taken Tylenol for pain relief. She describes her pain as contraction-like. She was seen at her primary who ordered a CT which the CT shows colitis. On exam tenderness greatest in left quadrant. No rebound. CT shows severe dilated taken earlier today. WBC count normal. Sodium and chloride low sodium so gave fluids. Will start her on Flagyl and Cipro. Discussed case with Dr. Molina who agrees to admit - Diagnoses Differential Diagnoses - Female: Colitis, Diverticulitis, Urinary Tract Infection Provider Diagnoses: Colitis Discharge - Discharge Plan Condition: Stable Disposition: ADMITTED TO [facility] Referrals: Eda De Dios [Primary Care Provider] -
[2017-09-05] MEDS ORDERED: Ciprofloxacin 400MG IVPREMIX(* 400 MG/200 ML BAG IVPB ONE (18:36)
[2017-09-05] MEDS ORDERED: metroNIDAZOLE IV 500 MG/100ML* 500 MG/100 ML BAG IVPB ONE (18:36)
[2017-09-05] MEDS ORDERED: Ondansetron INJ* 2 MG/ML VIAL IV PRN (19:30)
[2017-09-05] MEDS: NS 0.9% 1000 ML* 1,000 ML IV SCH (21:07)
[2017-09-05] MEDS: Morphine INJ* 2 MG/ML 1 ML CARPUJECT IV PRN (23:27)
--- NOTE | 2017-09-06 00:10 | HP ---
CC: Eda Woodall PA-C * HISTORY AND PHYSICAL: DATE OF ADMISSION: 09/05/17 PRIMARY CARE PROVIDER: Eda Woodall PA-C. CHIEF COMPLAINT: Abdominal pain and bloody diarrhea. HISTORY OF PRESENT ILLNESS: Ms. Morales is a 46-year-old female who has no significant past medical history who noted a loose bowel movement this past Tuesday. She states on Tuesday, she had a normal consistency bowel movement, but it was incredibly painful. Beginning the day prior to admission, she began to have profuse diarrhea. The patient states her appetite had been normal up to Tuesday evening. Beginning at approximately 1 a.m. on the day of admission , the patient began to have bloody bowel movements. The patient denies any fevers or chills. She does state she is having severe crampy abdominal pain. She denies any new food intake, no recent antibiotic use. She did visit [facility] a couple of weeks ago, but no other long distance travel. She has had no sick contacts. She has never had anything like this in the past. There is no family history of ulcerative colitis or Crohn disease. The patient does state that she has been feeling gassy recently, has been using Beano. Currently , the patient states that she does feel light-headed upon standing. The pain at this point is not well controlled. PAST MEDICAL HISTORY: None. PAST SURGICAL HISTORY: 1. Ear surgery. 2. Hernia surgery. MEDICATIONS: 1. Multivitamin 1 tablet p.o. daily. 2. P.r.n. Beano. ALLERGIES: No known drug allergies. FAMILY HISTORY: Mother is living, she is 73, has a history of SVT and giant cell arteritis. Dad is living, he is 73 and has a history of hypertension. SOCIAL HISTORY: The patient is a lifelong nonsmoker. She drinks alcohol rarely. 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 She is . She has 1 child. Her is her healthcare proxy. REVIEW OF SYSTEMS: Complete 11-system review of systems is obtained. Pertinent positives and negatives are as per HPI and in addition, the patient does complain of palpitations over the last 36 hours or so. PHYSICAL EXAMINATION GENERAL: The patient is a well-developed middle-aged thin petite female lying in bed, appearing to be in mild pain, but in no acute distress. VITAL SIGNS: Blood pressure 122/65, pulse 73, respirations 18, temp 99.6, O2 sat 100% on room air. HEENT: Pupils are equal. They are round, they react to light. Extraocular muscles are intact. Oropharynx is clear. Oral mucosa is slightly dry. There is no submandibular, cervical or supraclavicular adenopathy. Thyroid is not enlarged. No thyroid nodules are noted. PULMONARY: Lungs are clear to auscultation bilaterally. CARDIAC: Normal S1 and S2. Regular rate and rhythm. I do not appreciate any murmurs. There is no lower extremity edema. ABDOMEN: Bowel sounds are present. Abdomen is soft, nondistended. She is tender to palpation throughout, but worse in the left lower quadrant. MUSCULOSKELETAL: There is no cyanosis or clubbing of the digits. There is full active range of motion of all 4 extremities. NEURO: Cranial nerves II through XII are grossly intact. Sensation is intact to light touch throughout. Strength is 5/5 and symmetric in both upper and lower extremities bilaterally. SKIN: Warm and dry. There are no rashes. PSYCH: The patient is alert. She is oriented x3. Affect appears appropriate. LABORATORY DATA/DIAGNOSTIC STUDIES: WBC 10.5, hemoglobin 13.8, hematocrit 40, platelets 283,000. Sodium 131, potassium 4.2, chloride 98, CO2 of 27, BUN 6, creatinine 0.82, glucose 146, lactic acid 1.2, calcium 9.6, bilirubin 1.0, AST 16, ALT 15, alk phos 58. CRP 2.19, albumin 4.0, lipase 17. Urinalysis reveals a specific gravity of 1.[address] scan of abdomen and pelvis performed earlier on the day of admission as an outpatient reveals findings most consistent with colitis relatively severe in degree involving the ascending, transverse descending and sigmoid colon; the most prominent and severe degree in the transverse colon. ASSESSMENT AND PLAN: Ms. Morales is a 46-year-old female with no significant past medical history who presents to the emergency room with a day and a half of diarrhea that has now turned bloody and crampy abdominal pain with CT findings consistent with colitis. 1. Colitis. The differential diagnosis for this includes infectious versus ischemic versus inflammatory bowel disease. Inflammatory bowel disease seems less likely. There is no history as well as her CRP is not elevated. The patient could potentially have infectious colitis; however, her white blood cell count is normal. She does have a mildly elevated temperature of 99.6; however, denies any true fevers. We will go ahead and start Cipro and Flagyl at this point given the degree of the colitis; however. Stool culture and stool for C. difficile colitis has been sent to the lab and is pending at this point. Infectious seems again less likely as nobody else in the home has been ill with this diarrhea. Ischemic is a possibility; however, the patient is healthy and on the young side to have ischemic colitis. I have consulted Dr. Lopez for possible flexible sigmoidoscopy. She will be on clear liquids this evening. Further determination on flexible sigmoidoscopy will be made tomorrow. For pain, we will utilize morphine. She will have Zofran also available for nausea. 2. DVT prophylaxis. According to the Adult Thrombosis Prophylaxis Risk Factor Assessment Guide, the patient has a total risk factor score of 1, making her low risk. Ambulation will be utilized as DVT prophylaxis. 3. Code status is full. The patient indicates that her is her healthcare proxy. TIME SPENT: 65 minutes were spent admitting this patient. [id number]/[facility] #: [id number] DAVIS
[2017-09-06] MEDS: Morphine INJ* 2 MG/ML 1 ML CARPUJECT IV PRN ×2 (03:53→08:05)
[2017-09-06] MEDS: NS 0.9% 1000 ML* 1,000 ML IV SCH ×2 (05:31→17:04)
[2017-09-06] MEDS: Ciprofloxacin 400MG IVPREMIX(* 400 MG/200 ML BAG IVPB SCH ×2 (05:32→19:12)
[2017-09-06] MEDS: metroNIDAZOLE IV 500 MG/100ML* 500 MG/100 ML BAG IVPB SCH ×2 (08:05→21:51)
--- NOTE | 2017-09-06 13:24 | PN ---
Subjective Date of Service: 09/06/17 Interval History: C/o cramping abd pain that comes and goes, reports orange color bowel movement, loose with straining of blood. Denies chest pain or shortness of breath. c/o of left sided abd pain with palpation. Family History: Unchanged from Admission Social History: Unchanged from Admission Past Medical History: Unchanged from Admission Objective Active Medications: Ciprofloxacin/Dextrose (Cipro 400 Mg Ivpremix(*)) 400 mg in 200 mls @ 200 mls/ hr IVPB Q12H [facility] Last Admin: 09/06/17 05:32 Dose: 200 mls/hr Metronidazole/Sodium Chloride (Flagyl 500 Mg Ivpb*) 500 mg in 100 mls @ 100 mls /hr IVPB Q12H [facility] Last Admin: 09/06/17 08:05 Dose: 100 mls/hr Sodium Chloride (Ns 0.9% 1000 Ml*) 1,000 mls @ 125 mls/hr IV PER RATE [facility] Last Admin: 09/06/17 05:31 Dose: 125 mls/hr Morphine Sulfate (Morphine Inj (Syringe)*) 2 mg IV Q4H PRN PRN Reason: PAIN - MILD Last Admin: 09/06/17 08:05 Dose: 2 mg Ondansetron HCl (Zofran Inj*) 4 mg IV Q6H PRN PRN Reason: NAUSEA Vital Signs - 8 hr 09/06/17 09/06/17 09/06/17 08:00 08:05 08:53 Temperature 98.4 F Pulse Rate 80 Respiratory 16 19 16 Rate Blood Pressure 102/59 (mmHg) O2 Sat by Pulse 99 Oximetry 09/06/17 10:42 Temperature Pulse Rate Respiratory 16 Rate Blood Pressure (mmHg) O2 Sat by Pulse Oximetry Oxygen Devices in Use Now: None Appearance: appears comfortable resting in bed Eyes: No Scleral Icterus Ears/Nose/Mouth/Throat: Clear Oropharnyx, Mucous Membranes Moist Neck: NL Appearance and Movements; NL JVP, Trachea Midline Respiratory: Symmetrical Chest Expansion and Respiratory Effort, Clear to Auscultation Cardiovascular: NL Sounds; No Murmurs; No JVD, No Edema Abdominal: - - c/o left sided abd tenderness with palpation, abd flat, soft, BS + x4 Extremities: No Edema, No Clubbing, Cyanosis Skin: No Rash or Ulcers Neurological: Alert and Oriented x 3, NL Sensation, NL Muscle Strength and Tone Nutrition: Taking PO's, - - clears sips Result Diagrams: 09/06/17 13:51 09/05/17 17:42 Additional Lab and Data: Lab Results 09/05/17 09/05/17 09/05/17 Range/Units 17:42 17:42 17:42 WBC 10.5 (3.5-10.8) 10^3/ul RBC 4.20 (4.0-5.4) 10^6/ul Hgb 13.8 (12.0-16.0) g/dl Hct 40 (35-47) % MCV 95 (80-97) fL MCH 33 H (27-31) pg MCHC 35 (31-36) g/dl RDW 13 (10.5-15) % Plt Count 283 (150-450) 10^3/ul MPV 7 L (7.4-10.4) um3 Neut % (Auto) 80.5 (38-83) % Lymph % (Auto) 12.1 L (25-47) % [place] % (Auto) 7.1 (1-9) % Eos % (Auto) 0.1 (0-6) % Baso % (Auto) 0.2 (0-2) % Absolute Neuts (auto) 8.4 H (1.5-7.7) 10^3/ul Absolute Lymphs (auto) 1.3 (1.0-4.8) 10^3/ul Absolute Monos (auto) 0.7 (0-0.8) 10^3/ul Absolute Eos (auto) 0 (0-0.6) 10^3/ul Absolute Basos (auto) 0 (0-0.2) 10^3/ul Absolute Nucleated RBC 0 10^3/ul Nucleated RBC % 0 Sodium 131 L (133-145) mmol/L Potassium 4.2 (3.5-5.0) mmol/L Chloride 98 L (101-111) mmol/L Carbon Dioxide 27 (22-32) mmol/L Anion Gap 6 (2-11) mmol/L BUN 6 (6-24) mg/dL Creatinine 0.82 (0.51-0.95) mg/dL Est GFR ( Amer) 96.1 (>60) Est GFR (Non-Af Amer) 74.7 (>60) BUN/Creatinine Ratio 7.3 L (8-20) Glucose 146 H (70-100) mg/dL Lactic Acid 1.2 (0.5-2.0) mmol/L Calcium 9.6 (8.6-10.3) mg/dL Total Bilirubin 1.00 (0.2-1.0) mg/dL AST 16 (13-39) U/L ALT 15 (7-52) U/L Alkaline Phosphatase 58 (34-104) U/L C-React Prot High Sens 1.81 mg/L Total Protein 7.4 (6.4-8.9) g/dL Albumin 4.0 (3.2-5.2) g/dL Globulin 3.4 (2-4) g/dL Albumin/Globulin Ratio 1.2 (1-3) Lipase 17 (11.0-82.0) U/L Urine Color Urine Appearance Urine pH (5-9) Ur Specific [place] (1.010-1.030) Urine Protein (Negative) Urine Ketones (Negative) Urine Blood (Negative) Urine Nitrate (Negative) Urine Bilirubin (Negative) Urine Urobilinogen (Negative) Ur Leukocyte Esterase (Negative) Urine Glucose (Negative) 09/05/17 Range/Units 18:05 WBC (3.5-10.8) 10^3/ul RBC (4.0-5.4) 10^6/ul Hgb (12.0-16.0) g/dl Hct (35-47) % MCV (80-97) fL MCH (27-31) pg MCHC (31-36) g/dl RDW (10.5-15) % Plt Count (150-450) 10^3/ul MPV (7.4-10.4) um3 Neut % (Auto) (38-83) % Lymph % (Auto) (25-47) % [place] % (Auto) (1-9) % Eos % (Auto) (0-6) % Baso % (Auto) (0-2) % Absolute Neuts (auto) (1.5-7.7) 10^3/ul Absolute Lymphs (auto) (1.0-4.8) 10^3/ul Absolute Monos (auto) (0-0.8) 10^3/ul Absolute Eos (auto) (0-0.6) 10^3/ul Absolute Basos (auto) (0-0.2) 10^3/ul Absolute Nucleated RBC 10^3/ul Nucleated RBC % Sodium (133-145) mmol/L Potassium (3.5-5.0) mmol/L Chloride (101-111) mmol/L Carbon Dioxide (22-32) mmol/L Anion Gap (2-11) mmol/L BUN (6-24) mg/dL Creatinine (0.51-0.95) mg/dL Est GFR ( Amer) (>60) Est GFR (Non-Af Amer) (>60) BUN/Creatinine Ratio (8-20) Glucose (70-100) mg/dL Lactic Acid (0.5-2.0) mmol/L Calcium (8.6-10.3) mg/dL Total Bilirubin (0.2-1.0) mg/dL AST (13-39) U/L ALT (7-52) U/L Alkaline Phosphatase (34-104) U/L C-React Prot High Sens mg/L Total Protein (6.4-8.9) g/dL Albumin (3.2-5.2) g/dL Globulin (2-4) g/dL Albumin/Globulin Ratio (1-3) Lipase (11.0-82.0) U/L Urine Color Straw Urine Appearance Clear Urine pH 7.0 (5-9) Ur Specific [place] 1.023 (1.010-1.030) Urine Protein Negative (Negative) Urine Ketones Negative (Negative) Urine Blood Negative (Negative) Urine Nitrate Negative (Negative) Urine Bilirubin Negative (Negative) Urine Urobilinogen Negative (Negative) Ur Leukocyte Esterase Negative (Negative) Urine Glucose Negative (Negative) Assess/Plan/Problems-Billing Assessment: Ms. Morales is a 46 y.o female that presented to the emergency room for lower abd pain and bloody diarrhea. - Patient Problems (1) Ischemic colitis Current Visit: Yes Status: Acute Code(s): K55.9 - VASCULAR DISORDER OF INTESTINE, UNSPECIFIED SNOMED Code(s): 25885461 Comment: bowel rest Contiue IVF Sips of clears per Dr. Davis Continue IV cipro and flagyl May want to consult hematology d/t the fact that she is young and no pertinent medical history or family history Will place on telemetry to r/o arrthymia and possiblity embolic cause of the colitis discussed the need for CTA of the ABD with Radiology EMANUEL were well visualized and appear not to be the cause at this time- if symptoms worsen may want to consider to r/o embolic cause of the colitis (2) Abdominal pain Current Visit: Yes Status: Acute Code(s): R10.9 - UNSPECIFIED ABDOMINAL PAIN SNOMED Code(s): 14379032 Comment: suspect colitis~ will continue flagyl and cipro Consult GI (3) Diarrhea Current Visit: Yes Status: Acute Code(s): R19.7 - DIARRHEA, UNSPECIFIED SNOMED Code(s): 97333199 Comment: continue IV fluids for hydrations monitor BM for blood Stool for c- diff negative Dr. Davis consulted (4) DVT prophylaxis Current Visit: Yes Status: Acute Code(s): TRZ9639 - SNOMED Code(s): 934741746 (5) Full code status Current Visit: Yes Status: Acute Code(s): Z78.9 - OTHER SPECIFIED HEALTH STATUS SNOMED Code(s): 774971250 Status and Disposition: inpatient ~ GI consult pending
[2017-09-06 13:58] LABS: ABS Basophils 0 10^3/ul (0-0.2); ABS Eosinophils 0 10^3/ul (0-0.6); ABS Lymphocytes 1.4 10^3/ul (1.0-4.8); ABS Monocytes 0.9 10^3/ul (0-0.8); ABS Neutrophils 6.3 10^3/ul (1.5-7.7); ABS Nucleated RBC 0 10^3/ul; Eosinophil % 0.5 % (0-6); Hematocrit 33 % (35-47); Hemoglobin 11.3 g/dl (12.0-16.0); Lymphocyte % 15.9 % (25-47); Mean Corpuscular HGB Conc 34 g/dl (31-36); Mean Corpuscular Hemoglobin 33 pg (27-31); Mean Corpuscular Volume 96 fL (80-97); Mean Platelet Volume 7 um3 (7.4-10.4); Nucleated Red Blood Cells % 0; Platelet Count 207 10^3/ul (150-450); Red Blood Count 3.44 10^6/ul (4.0-5.4); Red Cell Distribution Width 13 % (10.5-15); White Blood Count 8.6 10^3/ul (3.5-10.8)
[2017-09-06] MEDS ORDERED: Midazolam* 1 MG/ML 10 ML VIAL (10 MG) ONE (15:24)
[2017-09-06] MEDS ORDERED: fentaNYL* 50 MCG/ML 2 ML VIAL (100 MCG VIAL) ONE (15:25)
--- NOTE | 2017-09-06 20:11 | CONS ---
GASTROENTEROLOGY CONSULT: DATE OF CONSULTATION: 09/06/17 CONSULTING PHYSICIAN: Moni Jones DO REASON FOR CONSULTATION: Bloody diarrhea. HISTORY OF PRESENT ILLNESS: This 46-year-old woman developed cramps on the morning of 09/04/17. That continued off and on and then she developed diarrhea in the afternoon. At 1 a.m. on 09/05/17, she saw blood for the first time and that continued to happen for a number of hours. She is still passing a little bit of material. At no point did she have a fever or vomiting. She is a vegetarian, actually pescetarian, but has not been making exceptions recently. Her is not a vegetarian. She does have a history of a fair amount of gas, which she attributes to the vegetarian diet. She also may have loose stools sporadically. That occurred on 09/02/17, but it was isolated, she states consistent with what she has had before. She did go on a better diet a couple of years ago and lost 40 pounds over 4 to 5 years. There is no family history of rheumatologic disorder, blood clots, or colitis or Crohn's. PAST MEDICAL HISTORY: Generally excellent health. MEDICATIONS: She takes p.r.n. phenazopyridine. ALLERGIES: None. SOCIAL HISTORY: She is and works at the [employer] in [facility] [employer] [facility]. She is a nonsmoker. REVIEW OF SYSTEMS: No history of rash, seizures, CVA, migraines, arthritis, TB , pulmonary disease, arrhythmias, syncope, hepatitis, jaundice, or anemia. She did have some dysuria, which she thought was a false lead and when taken off all hormonal preparation by her water systems engineer, those symptoms disappeared. Her periods have been irregular. PHYSICAL EXAMINATION: She is a slender, healthy appearing middle-aged woman in no distress. Her skin is normal. She has no adenopathy. Her lungs are clear. Heart sounds are normal. Abdomen is scaphoid, soft, with lower abdominal generalized tenderness. Bowel sounds are present and fairly normal. Perianal inspection and rectum are normal with some bloody secretions. Extremities show no deformity or edema. IMAGING: CT scan shows a diffusely thickened colon. LABORATORY DATA: White count 10.4. Albumin normal. IMPRESSION: A 46-year-old woman who has bloody diarrhea and no obvious infectious exposures. Ischemic colitis is suspected. Sigmoidoscopy is planned with no prep. [id number]/[facility] #: [id number] [facility]
--- NOTE | 2017-09-07 01:58 | PRO ---
DATE: 09/06/17 - ROOM #411 PROCEDURE: Colonoscopy to mid right colon and biopsy of descending colon, thickened, erythematous, and bluish swollen folds. INDICATION: This 46-year-old woman developed cramps and diarrhea, which became bloody after 8 to 10 hours. There was no fever at any point. She is a vegetarian and eats carefully. She has no vascular history. She is here for consultation. CT was said to show thickening of the right transverse colon. ENDOSCOPIST: Dr. Lopez. MEDICATION: Midazolam 8.5, fentanyl 100. INDINGS: She is a healthy-appearing woman, appearing younger than her stated age. Her abdomen is scaphoid, soft, diffuse lower abdominal deep tenderness. Perianal inspection and rectal are normal. Initial views show normal mucosa and no stool whatsoever. The mucosa is normal from 35 to 40 cm, estimated proximal sigmoid or distal descending. Then, there is fairly quick transition to swollen and then erythematous and mildly bluish fold. The edema is moderate and the discoloration mild. No overt bleeding is seen. The abnormal segment continues for about 25 cm and then at the splenic flexure, there is a quick transition to normal, which is present throughout the transverse and the right colon to the mid portion with views down to the cecum. No polyps were seen. No diverticula were documented. During withdrawal, biopsies were taken from the inflamed segment. Final views in the rectum were normal. IMPRESSION: Ischemic colitis - the characteristic distribution and normal proximal bowel establishes the diagnosis as opposed to any infectious or toxic insult. The patient has no risk factors for this, but presumably should have a hypercoagulable state workup. [id number]/[facility] #: [id number] [facility]
[2017-09-07] MEDS: NS 0.9% 1000 ML* 1,000 ML IV SCH ×3 (02:48→22:50)
[2017-09-07] MEDS: Morphine INJ* 2 MG/ML 1 ML CARPUJECT IV PRN ×2 (03:32→10:52)
[2017-09-07] MEDS: Ciprofloxacin 400MG IVPREMIX(* 400 MG/200 ML BAG IVPB SCH ×2 (05:56→18:55)
[2017-09-07] MEDS: metroNIDAZOLE IV 500 MG/100ML* 500 MG/100 ML BAG IVPB SCH ×2 (07:23→20:43)
[2017-09-07 07:38] LABS: ABS Basophils 0 10^3/ul (0-0.2); ABS Eosinophils 0.1 10^3/ul (0-0.6); ABS Lymphocytes 1.2 10^3/ul (1.0-4.8); ABS Monocytes 0.6 10^3/ul (0-0.8); ABS Neutrophils 4.4 10^3/ul (1.5-7.7); ABS Nucleated RBC 0 10^3/ul; Eosinophil % 1.2 % (0-6); Hematocrit 31 % (35-47); Hemoglobin 10.8 g/dl (12.0-16.0); Lymphocyte % 19.2 % (25-47); Mean Corpuscular HGB Conc 35 g/dl (31-36); Mean Corpuscular Hemoglobin 33 pg (27-31); Mean Corpuscular Volume 95 fL (80-97); Mean Platelet Volume 7 um3 (7.4-10.4); Nucleated Red Blood Cells % 0; Platelet Count 187 10^3/ul (150-450); Red Blood Count 3.28 10^6/ul (4.0-5.4); Red Cell Distribution Width 13 % (10.5-15); White Blood Count 6.4 10^3/ul (3.5-10.8)
[2017-09-07 07:49] LABS: EGFR Non-African American 86.8 (>60)
[2017-09-07 10:13] LABS: INR 1.03 (0.77-1.02)
--- NOTE | 2017-09-07 12:26 | ECHO ---
Patient: HARRIET ABDI [facility] Rec#: [id number] : 1970 Date: 09/07/2017 Age: 46y Height: 165.1 cm / 65.0 in Weight: 52.16 kg / 115.0 lbs Sex: F BSA: 1.56 Room#: 411 Admit Date#: 09/07/2017 Type: Inpatient Referring: Freddy Sandoval Reading: Chava Hernández MD Structures Engineer: Ludmila Lay,RDCS,RDMS CC: Eda De Dios Transthoracic Echocardiogram Indication: Peripheral Embolic Event BP: 110/66 HR: 72 Rhythm: NSR Findings History: Ischemic colitis. Technical Comments: The study quality is good. Left Ventricle: The left ventricular chamber size is normal. There is no left ventricular hypertrophy. The estimated ejection fraction is 55-60%. Normal left ventricular diastolic filling is observed. Left Atrium: The left atrial chamber size is normal. Right Ventricle: The right ventricular chamber size and systolic function are within normal limits. Right Atrium: The right atrial cavity size is normal. Aortic Valve: The aortic valve is trileaflet. Systolic excursion of the aortic valve is normal. There is no evidence of aortic regurgitation. There is no evidence of aortic stenosis. Mitral Valve: The mitral valve leaflets appear normal. There is no evidence of mitral regurgitation. There is no evidence of mitral stenosis. Tricuspid Valve: The tricuspid valve leaflets are normal. There is mild tricuspid regurgitation. Unable to estimate the right ventricular systolic pressure. Pulmonic Valve: The pulmonic valve appears normal. There is mild pulmonic regurgitation. Pericardium: There is no significant pericardial effusion. Aorta: The ascending aorta is not well visualized. There is no dilatation of the aortic arch. The aortic root is normal in size. Pulmonary Artery: The main pulmonary artery appears normal. Venous: The inferior vena cava is dilated. There is an approximate 50% respiratory change in the inferior vena cava dimension. Summary: There was not any prior study for comparison. Conclusions The left ventricular chamber size is normal. There is no left ventricular hypertrophy. The estimated ejection fraction is 55-60%. There is mild tricuspid regurgitation. Unable to estimate the right ventricular systolic pressure. There is mild pulmonic regurgitation. Measurements Name Value Normal Range RVIDd (AP) 2D 1.9 cm (0.9 - 2.6) RVDdMajor (2D) 2.7 cm (2.2 - 4.4) RAd ISD 4CH 4.3 cm (3.4 - 4.9) RA (A4C)W 3.2 cm (2.9 - 4.6) IVSd (2D) 0.7 cm (0.6 - 1) LVPWd (2D) 0.8 cm (0.6 - 1) LVIDd (2D) 3.9 cm (3.6 - 5.4) LVIDs (2D) 2.8 cm - LV FS (2D) 27 % (25 - 45) Aortic Annulus 1.9 cm (1.4 - 2.6) Ao root diameter (2D) 2.5 cm (2.1 - 3.5) Aortic arch 2.4 cm (1.8 - 3.4) LA dimension (AP) 2D 2.7 cm (2.3 - 3.8) LAd ISD 4CH 4.3 cm (2.9 - 5.3) LA ISD 4CH W 3.7 cm (2.5 - 4.5) Name Value Normal Range LA ESV SP 4CH (A/L) 30.09 ml - LA ESV SP 2CH (A/L) 40.45 ml - LA ESV BP (A/L) 35.39 ml - LA ESV BP (A/L) index 23 ml/m2 - LA ESV SP 4CH (MOD) 27.98 ml - LA ESV SP 2CH (MOD) 37.8 ml - LV EDV SP 4CH (MOD) 71.21 ml - LV ESV SP 4CH (MOD) 24.91 ml - EF SP 4CH (MOD) 65.02 % - LV EDV SP 2CH (MOD) 76.77 ml - LV ESV SP 2CH (MOD) 31.52 ml - EF SP 2CH (MOD) 58.95 % - LV EDV BP 74.16 ml - LV ESV BP 28.56 ml - BP EF (MOD) 61.5 % - Name Value Normal Range MV E-wave Vmax 0.7 m/sec - MV deceleration time 178 msec - MV A-wave Vmax 0.4 m/sec - MV E:A ratio 1.6 ratio - P. vein S-wave Vmax 0.5 m/sec - P. vein D-wave Vmax 0.4 m/sec - P. vein S:D Vmax ratio 1.1 ratio - P. vein A-wave duration 89 msec - LV septal e' Vmax 0.13 m/sec - LV lateral e' Vmax 0.15 m/sec - LV E:e' septal ratio 5.4 ratio - LV E:e' lateral ratio 4.7 ratio - Name Value Normal Range AV Vmax 1.4 m/sec - AV VTI 29 cm - AV peak gradient 8 mmHg - AV mean gradient 4.3 mmHg - LVOT Vmax 1 m/sec - LVOT VTI 23.5 cm - LVOT peak gradient 4 mmHg - LVOT mean gradient 2.4 mmHg - LENKA Vmax 0.9 m/sec - Name Value Normal Range RAP 8 mmHg - IVC diameter 2.4 cm - Name Value Normal Range PV Vmax 0.7 m/sec - PV peak gradient 2 mmHg -
--- NOTE | 2017-09-07 16:46 | PN ---
Subjective Date of Service: 09/07/17 Interval History: Patient has continued cramping abdominal pain and bloody diarrhea. Patient has slight improvement in both her pain and diarrhea from yesterday. Patient denies F/C, CP, SOB, dysuria, dizziness, palpitations, headache, changes in vision, or other pain. Family History: Unchanged from Admission Social History: Unchanged from Admission Past Medical History: Unchanged from Admission Objective Active Medications: Ciprofloxacin/Dextrose (Cipro 400 Mg Ivpremix(*)) 400 mg in 200 mls @ 200 mls/ hr IVPB Q12H [facility] Last Admin: 09/07/17 05:56 Dose: 200 mls/hr Metronidazole/Sodium Chloride (Flagyl 500 Mg Ivpb*) 500 mg in 100 mls @ 100 mls /hr IVPB Q12H [facility] Last Admin: 09/07/17 07:23 Dose: 100 mls/hr Sodium Chloride (Ns 0.9% 1000 Ml*) 1,000 mls @ 125 mls/hr IV PER RATE [facility] Last Admin: 09/07/17 12:39 Dose: 125 mls/hr Influenza Virus Vaccine (Fluarix *Quad* *) 0.5 ml IM .ONCE ONE Stop: 09/08/17 09:01 Morphine Sulfate (Morphine Inj (Syringe)*) 2 mg IV Q4H PRN PRN Reason: PAIN - MILD Last Admin: 09/07/17 10:52 Dose: 2 mg Ondansetron HCl (Zofran Inj*) 4 mg IV Q6H PRN PRN Reason: NAUSEA Vital Signs - 8 hr 09/07/17 09/07/17 09/07/17 10:52 11:17 11:52 Temperature 98.6 F Pulse Rate 80 Respiratory 16 16 14 Rate Blood Pressure 116/62 (mmHg) O2 Sat by Pulse 100 Oximetry Oxygen Devices in Use Now: None Appearance: Patient is a 46yo female who appears stated age and is sitting in the bed in [facility]. Eyes: No Scleral Icterus, PERRLA Ears/Nose/Mouth/Throat: NL Teeth, Lips, Gums, Clear Oropharnyx, Mucous Membranes Moist Neck: NL Appearance and Movements; NL JVP, Trachea Midline Respiratory: Symmetrical Chest Expansion and Respiratory Effort, Clear to Auscultation Cardiovascular: NL Sounds; No Murmurs; No JVD, RRR, No Edema Abdominal: No Hepatosplenomegaly, - - Tender to palpation over the RUQ and RLQ without rebound or guarding. BS present and hyperactive in all 4 quadrants. Lymphatic: No Cervical Adenopathy Extremities: No Edema, No Clubbing, Cyanosis Skin: No Rash or Ulcers, No Nodules or Sclerosis Neurological: Alert and Oriented x 3, NL Sensation, NL Muscle Strength and Tone , - - CN II-XII intact. Result Diagrams: 09/07/17 07:15 09/07/17 07:15 Additional Lab and Data: Lab Results Assess/Plan/Problems-Billing Assessment: Ms. Morales is a 46 y.o female that presented to the emergency room for lower abd pain and bloody diarrhea and was found to have confirmed ischemic colitis on colonoscopy. - Patient Problems (1) Ischemic colitis Current Visit: Yes Status: Acute Code(s): K55.9 - VASCULAR DISORDER OF INTESTINE, UNSPECIFIED SNOMED Code(s): 60663498 Comment: Apprecaite GI input. Bowel rest with Sips of clears Continue IV cipro and flagyl Hypercoagulability workup pending. Tele in place without arrhythmia. No mural thrombus or PFO on echo. No bubble study performed. Lipid panel stellar. Patient in an avid athlete cycling 30km every other day. No marathon running or other extreme endurance activities. Pain and bloody diarrhea improving. Continued watery stools. (2) DVT prophylaxis Current Visit: Yes Status: Acute Code(s): NBA2777 - SNOMED Code(s): 007971076 Comment: SCDs in the setting of GI bleeding. (3) Full code status Current Visit: Yes Status: Acute Code(s): Z78.9 - OTHER SPECIFIED HEALTH STATUS SNOMED Code(s): 363842516 Status and Disposition: inpatient ~ GI consult pending
[2017-09-08] MEDS: Ciprofloxacin 400MG IVPREMIX(* 400 MG/200 ML BAG IVPB SCH ×2 (05:53→19:10)
[2017-09-08 07:02] LABS: ABS Basophils 0 10^3/ul (0-0.2); ABS Eosinophils 0.1 10^3/ul (0-0.6); ABS Lymphocytes 1.1 10^3/ul (1.0-4.8); ABS Monocytes 0.5 10^3/ul (0-0.8); ABS Nucleated RBC 0 10^3/ul; Eosinophil % 2.3 % (0-6); Hematocrit 29 % (35-47); Hemoglobin 10.3 g/dl (12.0-16.0); Lymphocyte % 23.7 % (25-47); Mean Corpuscular HGB Conc 35 g/dl (31-36); Mean Corpuscular Hemoglobin 34 pg (27-31); Mean Corpuscular Volume 96 fL (80-97); Mean Platelet Volume 6 um3 (7.4-10.4); Nucleated Red Blood Cells % 0; Platelet Count 179 10^3/ul (150-450); Red Blood Count 3.05 10^6/ul (4.0-5.4); Red Cell Distribution Width 13 % (10.5-15); White Blood Count 4.8 10^3/ul (3.5-10.8)
[2017-09-08 07:12] LABS: EGFR Non-African American 91.2 (>60)
[2017-09-08] MEDS: NS 0.9% 1000 ML* 1,000 ML IV SCH ×2 (08:12→19:10)
[2017-09-08] MEDS: metroNIDAZOLE IV 500 MG/100ML* 500 MG/100 ML BAG IVPB SCH ×2 (08:13→21:00)
[2017-09-08] MEDS ORDERED: Influenza VAC *QUAD* 2017-18* 0.5 ML SYRINGE IM ONE (09:00)
[2017-09-08] MEDS ORDERED: Magnesium Sulfate 2 GM IV* 2 GM/50 ML BAG IVPB ONE (13:22)
--- NOTE | 2017-09-08 13:34 | PN ---
Subjective Date of Service: 09/08/17 Interval History: Patient has decreased pain and diarrhea overnight without any bloody stools. Denies F/C, CP, SOB, N/V, dysuria, palpitations, or other pain. Patient tolerated a clear liquid breakfast and lunch and remained hungry. Family History: Unchanged from Admission Social History: Unchanged from Admission Past Medical History: Unchanged from Admission Objective Active Medications: Ciprofloxacin/Dextrose (Cipro 400 Mg Ivpremix(*)) 400 mg in 200 mls @ 200 mls/ hr IVPB Q12H [facility] Last Admin: 09/08/17 05:53 Dose: 200 mls/hr Metronidazole/Sodium Chloride (Flagyl 500 Mg Ivpb*) 500 mg in 100 mls @ 100 mls /hr IVPB Q12H [facility] Last Admin: 09/08/17 08:13 Dose: 100 mls/hr Sodium Chloride (Ns 0.9% 1000 Ml*) 1,000 mls @ 125 mls/hr IV PER RATE [facility] Last Admin: 09/08/17 08:12 Dose: 125 mls/hr Magnesium Sulfate (Magnesium Sulfate 2 Gm Iv*) 2 gm in 50 mls @ 50 mls/hr IVPB ONCE ONE Stop: 09/08/17 14:21 Morphine Sulfate (Morphine Inj (Syringe)*) 2 mg IV Q4H PRN PRN Reason: PAIN - MILD Last Admin: 09/07/17 10:52 Dose: 2 mg Ondansetron HCl (Zofran Inj*) 4 mg IV Q6H PRN PRN Reason: NAUSEA Vital Signs - 8 hr 09/08/17 09/08/17 07:20 08:00 Temperature 98.3 F Pulse Rate 77 Respiratory 16 15 Rate Blood Pressure 95/50 (mmHg) O2 Sat by Pulse 100 Oximetry Oxygen Devices in Use Now: None Appearance: Patient is a 46yo female who appears stated age and is sitting in the bed in [facility]. Eyes: No Scleral Icterus, PERRLA Ears/Nose/Mouth/Throat: NL Teeth, Lips, Gums, Clear Oropharnyx, Mucous Membranes Moist Neck: NL Appearance and Movements; NL JVP, Trachea Midline Respiratory: Symmetrical Chest Expansion and Respiratory Effort, Clear to Auscultation Cardiovascular: NL Sounds; No Murmurs; No JVD, RRR, No Edema Abdominal: NL Sounds; No Tenderness; No Distention, No Hepatosplenomegaly Lymphatic: No Cervical Adenopathy Extremities: No Edema, No Clubbing, Cyanosis Skin: No Rash or Ulcers, No Nodules or Sclerosis Neurological: Alert and Oriented x 3, NL Sensation, NL Muscle Strength and Tone , - - CN II-XII intact. Result Diagrams: 09/08/17 06:38 09/08/17 06:38 Additional Lab and Data: Lab Results Assess/Plan/Problems-Billing Assessment: Ms. Morales is a 46 y.o female that presented to the emergency room for lower abd pain and bloody diarrhea and was found to have confirmed ischemic colitis on colonoscopy. Tolerating advanced diet. - Patient Problems (1) Ischemic colitis Current Visit: Yes Status: Acute Code(s): K55.9 - VASCULAR DISORDER OF INTESTINE, UNSPECIFIED SNOMED Code(s): 70061211 Comment: Appreciate GI input. Advanced diet to clear liquids. Continue IV cipro and flagyl Hypercoagulability workup pending. Tele in place without arrhythmia. No mural thrombus or PFO on echo. No bubble study performed. Lipid panel stellar. Patient in an avid athlete cycling 30km every other day. No marathon running or other extreme endurance activities. Continued watery stools, no blood. (2) Hypomagnesemia Current Visit: Yes Status: Acute Code(s): E83.42 - HYPOMAGNESEMIA SNOMED Code(s): 321791824 Comment: 1.4, 3g given. Will recheck in AM. (3) DVT prophylaxis Current Visit: Yes Status: Acute Code(s): FSO5761 - SNOMED Code(s): 572121099 Comment: SCDs and frequent ambulation. (4) Full code status Current Visit: Yes Status: Acute Code(s): Z78.9 - OTHER SPECIFIED HEALTH STATUS SNOMED Code(s): 764306118 Status and Disposition: inpatient
[2017-09-09 06:05] LABS: ABS Basophils 0 10^3/ul (0-0.2); ABS Eosinophils 0.1 10^3/ul (0-0.6); ABS Monocytes 0.4 10^3/ul (0-0.8); ABS Neutrophils 2.3 10^3/ul (1.5-7.7); ABS Nucleated RBC 0 10^3/ul; Eosinophil % 1.9 % (0-6); Hematocrit 28 % (35-47); Hemoglobin 9.6 g/dl (12.0-16.0); Lymphocyte % 25.9 % (25-47); Mean Corpuscular HGB Conc 35 g/dl (31-36); Mean Corpuscular Hemoglobin 33 pg (27-31); Mean Corpuscular Volume 95 fL (80-97); Mean Platelet Volume 6 um3 (7.4-10.4); Nucleated Red Blood Cells % 0; Platelet Count 166 10^3/ul (150-450); Red Blood Count 2.91 10^6/ul (4.0-5.4); Red Cell Distribution Width 13 % (10.5-15); White Blood Count 3.8 10^3/ul (3.5-10.8)
[2017-09-09] MEDS: NS 0.9% 1000 ML* 1,000 ML IV SCH (06:13)
[2017-09-09] MEDS: Ciprofloxacin 400MG IVPREMIX(* 400 MG/200 ML BAG IVPB SCH (06:13)
[2017-09-09 06:39] LABS: EGFR Non-African American 82.8 (>60)
[2017-09-09] MEDS: metroNIDAZOLE IV 500 MG/100ML* 500 MG/100 ML BAG IVPB SCH (09:58)
[2017-09-09 14:55] VITALS: BP 98/58
[2017-09-09] MEDS ORDERED: Ciprofloxacin TAB* 500 MG PO SCH (21:00)
[2017-09-09] MEDS ORDERED: metroNIDAZOLE TAB* 250 MG PO SCH (21:00)
--- NOTE | 2017-09-12 03:55 | DS ---
CC: Eda Woodall PA-C * DISCHARGE SUMMARY: DATE OF ADMISSION: 09/05/17 DATE OF DISCHARGE: 09/09/17 PRIMARY CARE PROVIDER: Eda Woodall PA-C, [facility]. MY ATTENDING WHILE IN THE HOSPITAL: Dr. Toni Molina.* (DICTATED BY KETAN HERNANDEZ) PRIMARY DISCHARGE DIAGNOSES: 1. Ischemic colitis. 2. Hematochezia. SECONDARY DISCHARGE DIAGNOSES: None. STUDIES DONE WHILE IN THE HOSPITAL: CT scan of the abdomen and pelvis as an outpatient shows colitis in the ascending, transverse, and sigmoid colon. Transthoracic echocardiogram from 09/07/17, shows left ventricular chamber size normal, no left ventricular hypertrophy, estimated ejection fraction 55% to 60% , mild tricuspid regurgitation, mild pulmonic regurgitation, no mural thrombus. MEDICATIONS AT DISCHARGE: 1. Multivitamin. 2. Ciprofloxacin 500 mg p.o. q.12 hours x8. 3. Metronidazole 500 mg p.o. b.i.d. x8. New medications at discharge: 1. Ciprofloxacin. 2. Metronidazole. Medications discontinued at discharge: Ibuprofen. HOSPITAL COURSE: This is a brief summary of the patient's presentation. For more details, please see the history and physical from Dr. Moni Jones on 12/16. In brief, patient is a 46-year-old female with past medical history significant for nothing, who presents with loose bowel movements since 09/02/17 , which were accompanied by very intense abdominal pain. This evolved to profuse diarrhea and nausea as well as the patient also developed hematochezia. The patient had no other symptoms such as fevers, chills, no recent travel or long distance travel. No history of this in the past. No family history of inflammatory bowel disease. The patient admitted to the hospital, started on IV antibiotics, stool culture, C. difficile culture were negative. Gastroenterology was consulted and believed this to be most likely ischemic colitis, which was confirmed by colonoscopy showing edema, mild bluish discoloration, no overt bleeding in the proximal sigmoid and distal descending colon, which ends abruptly at the splenic flexure. Biopsies were taken which showed ischemic colitis. The patient improved greatly over the course of her hospitalization. The patient had no white blood cell count. The patient had mild anemia likely due from dilution, because the patient was continued on normal saline throughout her hospitalization to enter perfusion to her bowel. The patient continued to have diarrhea throughout her hospitalization, which was clear, no blood after 09/06/17. The patient's CT scan of her abdomen well visualized the inferior mesenteric artery and showed no occlusion according to Radiology, so CTA of the abdomen and pelvis was not performed. The patient had a hypercoagulable workup, which is still pending at the time of discharge. The patient has had no vital sign abnormalities throughout her hospitalization except for mild hypotension during the night of 09/07/17, during which she was asymptomatic. The patient felt very well on the morning of 09/09/17, was discharged to home to follow up with her primary care provider about the results of her hypercoagulable workup and to get a hematology evaluation afterwards if indicated. The patient is an avid cyclist, cycling for approximately 30 kilometers on a stationary bicycle every twice a week. The patient was suggested this could possibly have contributed to her ischemic colitis, even though it is doubtful, but was instructed do not engage in high- intensity exercise until she is cleared by her primary care provider. The patient should also follow up with Gastroenterology within 2 weeks. The patient will return to the hospital for recurrence of extreme abdominal pain, chest pain, or shortness of breath, bloody stools, or other alarming symptoms. PHYSICAL EXAMINATION AT THE DAY OF DISCHARGE: General: The patient is a 46- year- old female who appears stated age and sitting comfortably on the bed in no acute distress. Vital signs at time of discharge, temperature 98.6, pulse rate 79, respiratory rate 16, oxygen saturation 100% on room air, blood pressure 98/58. HEENT: Head normocephalic, atraumatic. Sclerae anicteric. No conjunctival injection. Nasal mucosa moist. Oral mucosa moist. No oropharyngeal erythema, discharge, or exudate. Neck: Supple, nontender. No lymphadenopathy. No carotid bruits auscultated. Cardiac: Regular rate and rhythm. No clicks, murmurs, gallops, or rubs. Pulses 2+, bilateral dorsalis pedis, posterior tibialis, and radial areas. No edema noted in bilateral lower extremities: Respiratory: Clear to auscultation bilaterally. No wheezes, rales, or rhonchi. Good air exchange bilaterally. Abdomen: Soft, nontender, nondistended. Bowel sounds present and normoactive in all 4 quadrants. No hepatosplenomegaly. No abdominal bruits auscultated. Genitourinary: No suprapubic tenderness or CVA tenderness. Skin: Clean, dry, and intact. No rash. Neuro: Cranial nerves II through XII intact. No focal deficits. Alert and oriented x3. Psychiatric: Pleasant and cooperative. LABORATORY DATA ON DAY OF DISCHARGE: White blood cell count 3.8, hemoglobin 9.6 , platelet count 166. Sodium 139, potassium 3.7, chloride 111, carbon dioxide 24, anion gap 4, BUN 5, creatinine 0.75, glucose 87, calcium 7.9, magnesium 1.9. Other laboratory data from admission cholesterol 91, LDL cholesterol 29, HDL cholesterol 51.5. PT 12.7, INR 1.2. Golden Viper venom screen 0.9. Protein C-reactive 76. Protein S-activity pending. Antithrombin III activity 80. Factor V activity 91. MTHFR prothrombin [id number] pending. DISCHARGE PLAN: The patient will be discharged to home. The patient should drink plenty of fluids, have a regular unrestricted diet. The patient should not engage in very strenuous activity, but otherwise engage in moderate activity as tolerated. The patient should follow up with primary care provider within 1 week to discuss her hypercoagulable workup and be referred to Hematology as deemed appropriate. The patient should follow up with Gastroenterology within 2 weeks. The patient should call the office to set up this appointment. The patient should return to the hospital for severe abdominal pain, chest pain, and shortness of breath or other alarming symptoms. The patient should have a regular unrestricted diet. TIME SPENT: Approximately 60 minutes was spent on this discharge, 30 of which was spent [id number] with the patient obtaining history and physical and discussing treatment plan. KETAN HERNANDEZ [id number]/[facility] #: [id number] DAVIS
[2017-09-12 17:59] LABS: Prothrombin 20210 Mutation Negative (Negative)
== END 2017-09-09 16:07 | disposition home or self-care (01) | DRG 395 ==
LOC: ED 16:14 → MED 19:30 → OBSVTOIN 09-07 08:36
PROVIDERS: ADMIT Hospitalist; ATTEND Internal Medicine
PROC: 0DBM8ZX Excision of Descending Colon, Via Natural or Artificial Opening Endoscopic, Diagnostic (ICD-10-PCS; principal; 2017-09-07)
DX: K55.9 Vascular disorder of intestine, unspecified (principal); E83.42 Hypomagnesemia; Z82.49 Family history of ischemic heart disease and other diseases of the circulatory system; Z83.6 Family history of other diseases of the respiratory system; Z23 Encounter for immunization
CPT/HCPCS: 36415; 80048; 80053; 80061; 81003; 81240; 81291; 83090; 83605; 83690; 83735; 85025; 85220; 85300; 85303; 85306; 85610; 85613; 85730; 86140; 86141; 87045; 87046; 87077; 87186; 87493; 87899; 88305; 90686; 93306; 99156; 99157; 99284; J0744; J2250; J2270; J2405; J3010; J3475; J3490

== ENCOUNTER 2019-04-04 08:08 | Emergency (ER) | payer OTHER ==
--- OUTSIDE RECORDS SUMMARY | 2019-04-04 08:13 | XMS REPORT | Continuity of Care Document ---
:1970 External Reference #:[id number] Author Name Eldon Meredith Care Team Providers Name Role Phone Eda Woodall PA Primary Care Physician Unavailable Payers Date Identification Numbers Payment Provider Subscriber Effective: 2011 Policy Number: [id number] [employer] Tessa Morales PayID: [id number] [address] [place] [address] Family History Date Family Member(s) Observation Comments Father Hypertension Mother Giant cell arteritis no CVA; vision diminished - restarted prednisone summer 2018 Mother Supraventricular tachycardia Social History Type Date Description Comments Sex Unknown ETOH Use Denies alcohol use Tobacco Use Start: Unknown Patient has never smoked Recreational Drug Use Denies Drug Use Smoking Status Reviewed: 03/08/19 Patient has never smoked Exercise Type/Frequency Exercises regularly cycling every other day and walks/yoga the other days. Allergies, Adverse Reactions, Alerts Description No Known Drug Allergies Medications Active Medications SIG Qnty Indications Ordering Provider Date Multi Complete/Iron 1 by mouth every Unknown day Tablets Vital Signs Date Vital Result Comment 03/08/2019 9:18am Height 65.5 inches 5'5.50" Weight 125.00 lb Heart Rate 63 /min BP Systolic 105 mmHg BP Diastolic 67 mmHg O2 % BldC Oximetry 100 % BMI (Body Mass Index) 20.5 kg/m2 Procedures Date Code Description Status 09/07/2017 29079 ECHO Transthorasic Realtime 2D W Doppler & Color Flow Completed Hosp 09/06/2017 [id number] Colonoscopy Completed Encounters Type Date Location Provider Dx Diagnosis Office Visit 09/09/2017 [facility] Freddy Gant, K52.9 Noninfective 9:53a Assoc,pc PA gastroenteritis and Hospitalists colitis, unspecified Office Visit 09/08/2017 [facility] Freddy Gant, K52.9 Noninfective 9:52a Assoc,pc PA gastroenteritis and Hospitalists colitis, unspecified Office Visit 09/07/2017 [facility] Freddy Gant, K52.9 Noninfective 9:50a Assoc,pc PA gastroenteritis and Hospitalists colitis, unspecified Office Visit 09/05/2017 [facility] Moni Jones, K52.9 Noninfective 9:47a Assoc,pc D.O. gastroenteritis and Hospitalists colitis, unspecified Plan of Treatment Future Appointment(s):05/14/2019 1:00 pm - Sina Lopez MD at [facility] Kzyqcerwitdfxofl39/08/2019 - Sina Lopez MDK59.00 Constipation, unspecifiedFollow up:2 qkwelcR95.5 Other fecal abnormalitiesFollow up:2 months
[2019-04-04 08:19] VITALS: BP 131/68
--- NOTE | 2019-04-04 08:44 | UC ---
Back Pain HPI - HPI Summary HPI Summary: 48 yo [place] [employer] with 2 week history of evolving pain in the upper back and chest, beginning with a strain when she was manipulating heavy bags into her car and strained the right shoulder area. Tried muscle relaxant at that time which was too sedating. No radiation of pain into the arm and no associated paresthesias. Four days ago, seen at PCP office due to increasing right ear pressure, started on nasal spray and antihistamine with some relief of symptoms in the ear since then. Trial of metaxolone started at that time, and also began use of advil 600mg every 6 hours; currently feeling worse with an increase in upper back pressure, increasing lightheadedness, and persistent upper back pain. Has had no cough or fever, but the pain is reminiscent of a previous pneumonia. - History of Current Complaint Chief Complaint: UCChestPain Stated Complaint: BACK PAIN, AND CHEST PAIN Time Seen by Provider: 04/04/19 08:25 Hx Obtained From: Patient Hx Last Menstrual Period: 2 weeks Onset/Duration: Gradual Onset, Lasting Weeks - 2 Timing: Constant Severity Initially: Mild Severity Currently: Moderate Pain Intensity: 1 Back Pain: Is Diffuse Character: Aching, Throbbing, Stiffness Aggravating Factor(s): Movement Alleviating Factor(s): Rest Associated Signs And Symptoms: Positive: Abdominal Pain - has some migratory abdominal pain, not unusual for her. Hx of ischemic colitis. Related History: Previous Back Injury - Risk Factors AAA Risk Factors: Negative TAD Risk Factors: Negative Cauda Equina Risk Factors: Negative Epidural Abscess Risk Factors: Negative - Allergies/Home Medications Allergies/Adverse Reactions: Allergies Allergy/AdvReac Type Severity Reaction Status Date / Time No Known Allergies Allergy Verified 04/04/19 08:27 Home Medications: Home Medications Ibuprofen TAB* [Motrin TAB* 600 MG] 600 mg PO Q6H PRN 04/04/19 [History Confirmed 04/04/19] Loratadine [Claritin 10 MG CAP] 10 mg PO DAILY WITH MEAL 04/04/19 [History Confirmed 04/04/19] Metaxalone 800 mg PO TID 04/04/19 [History Confirmed 04/04/19] Phenylephrine HCl [Eql Nasal [place] Fast Acti] 1 % NA DAILY WITH MEAL 04/04/19 [ History Confirmed 04/04/19] PMH/Surg Hx/FS Hx/Imm Hx - Additional Past Medical History Additional PMH: past right tympnaoplasty Previously Healthy: Yes GI/ History: Other - hx of ischemic colitis several years ago, without a clear etiology or recognized risk factors for this. - Surgical History Surgical History: Yes Surgery Procedure, Year, and Place: EAR - Family History Known Family History: Positive: Respiratory Disease - COUSIN KIDNEY STONE, Other - mother has had temporal arteritis. - Social History Occupation: Employed Full-time Alcohol Use: Rare Alcohol Amount: WINE W/ DINNER Substance Use Type: None Smoking Status (MU): Never Smoked Tobacco - Immunization History Most Recent Influenza Vaccination: 2016 Most Recent Pneumonia Vaccination: up to date Review of Systems All Other Systems Reviewed And Are Negative: Yes Constitutional: Positive: Fatigue Eyes: Positive: Negative. Negative: Blurred Vision, Diplopia ENT: Positive: Ear Ache. Negative: Sore Throat, Sinus Congestion Respiratory: Positive: Shortness Of Breath. Negative: Cough Cardiovascular: Positive: Chest Pain Gastrointestinal: Positive: Diarrhea - x 3 days ago, no stool since. Genitourinary: Positive: Negative Motor: Positive: Other - pain in upper back Musculoskeletal: Positive: Myalgia. Negative: Decreased ROM Neurological: Negative: Weakness, Paresthesia Physical Exam Triage Information Reviewed: Yes Appearance: Well-Appearing, Pain Distress - moderate., Thin, Other: - appears mildly anxious Vital Signs: Initial Vital Signs Temp 98.1 F 04/04/19 08:13 Pulse 81 04/04/19 08:13 Resp 18 04/04/19 08:13 BP 131/68 04/04/19 08:13 Pulse Ox 100 04/04/19 08:13 Eye Exam: Other - ABHILASH Eyes: Positive: Conjunctiva Clear Diagnostics - Radiology No standard instances Radiology Interpretation Completed By: Radiologist Summary of Radiographic Findings: Normal chest xray without pnmeumonia. Thoracic scoliosis. Back Pain Course/Dx - Course Course Of Treatment: Stop advil and return to use fof cyclobenazaprine for upper back pain, taking 1/ 2 dose before bed. Try to expedite referral to Dr. Lagos. PT for upper back strengthening. - Differential Dx/Diagnosis Differential Diagnosis/HQI/PQRI: Strain, Sprain Provider Diagnosis: Upper back pain, Serous otitis media Discharge ED - Sign-Out/Discharge Documenting (check all that apply): Patient Departure All imaging exams completed and their final reports reviewed: Yes - Discharge Plan Condition: Stable Disposition: HOME Patient Education Materials: Back Pain (ED), Serous Otitis Media (ED) Referrals: Eda Woodall PA [Primary Care Provider] - Additional Instructions: Discontinue advil and take 1/2 dose of cyclobenzaprine at bedtime to reliev upper back pain, and try to use heat and stretch before bed. I suggest PT for upper back strengthtening. I have asked Dr. Lagos's office to put you on a cancellation list, and have sent a new referral to include the diagnosis of vertigo. Continue use of fluticasone and antihistamine. Use TUMS for possible stomach acid increase related to increased use of advil. - Billing Disposition and Condition Condition: STABLE Disposition: Home
== END 2019-04-04 09:50 | disposition home or self-care (01) ==
LOC: UCEAST 08:08
DX: M54.9 Dorsalgia, unspecified (principal); H65.90 Unspecified nonsuppurative otitis media, unspecified ear
CPT/HCPCS: 71046; 72070; 93005; 99211; G0463